=== PATIENT | male | born 1985 | race Hispanic/Latino ===

== ENCOUNTER → 2017-02-28 | Outpatient (REF) | payer OTHER ==
[2017-02-28 16:34] LABS: #IMMOTILE SPERM COUNTED 21.5; #MOTILE SPERM COUNTED 9; % MOTILITY 29 (> 25%); TOTAL # SPERM COUNTED 30.5 M/ml
== END ==
LOC: M LAB REF 15:54
PROVIDERS: ATTEND Obstetrics & Gynecology
DX: N46.9 Male infertility, unspecified (principal)

== ENCOUNTER → 2017-05-25 | Outpatient (REF) | payer OTHER ==
[2017-05-25 10:15] LABS: % NORMAL FORMS 5 % (>=4); IMMOTILITY 58 %; NON PROGRESSIVE MOTILITY (c) 15 %; PROGRESSIVE MOTILITY (a) 27 % (>=32); SPERM# 60.3 M/Ejac (33-46); TOTAL MOTILITY 42 % (>=40); TOTAL PROGRESSIVE SPERM 16.2 M/Ejac.
== END ==
LOC: M LAB REF 09:30
PROVIDERS: ATTEND Obstetrics & Gynecology
DX: N46.9 Male infertility, unspecified (principal)

== ENCOUNTER → 2017-06-06 | Outpatient (REF) | payer OTHER ==
[2017-06-06 09:24] LABS: % NORMAL FORMS 9 % (>=4); IMMOTILITY 48 %; NON PROGRESSIVE MOTILITY (c) 14 %; PROGRESSIVE MOTILITY (a) 38 % (>=32); SPERM# 78.3 M/Ejac (33-46); TOTAL FUNCTIONAL 6.3 M/Ejac.; TOTAL MOTILITY 52 % (>=40); TOTAL PROGRESSIVE SPERM 30.1 M/Ejac.
== END ==
LOC: M LAB REF 09:13
PROVIDERS: ATTEND Obstetrics & Gynecology
DX: N46.8 Other male infertility (principal)

== ENCOUNTER → 2017-06-14 | Outpatient (REF) | payer OTHER ==
[2017-06-14 10:38] LABS: SPERM ABNORMAL FORMS OTHER (SPECIFIY)
[2017-06-14 10:39] LABS: % NORMAL FORMS 14 % (>=4); IMMOTILITY 30 %; NON PROGRESSIVE MOTILITY (c) 13 %; PROGRESSIVE MOTILITY (a) 57 % (>=32); SPERM# 46.1 M/Ejac (33-46); TOTAL FUNCTIONAL 7.9 M/Ejac.; TOTAL MOTILITY 70 % (>=40); TOTAL PROGRESSIVE SPERM 26.4 M/Ejac.
== END ==
LOC: M LAB REF 10:28
PROVIDERS: ATTEND Obstetrics & Gynecology
DX: N46.8 Other male infertility (principal)

== ENCOUNTER 2017-10-05 11:18 | Inpatient (IN) | payer OTHER ==
[~2017-10-05] VITALS: Ht 170.2 cm; Wt 73.0 kg
[2017-10-05 12:36] LABS: MEAN CORPUSCULAR HEMOGLOBIN 29.8 pg (27.0-33.0); MEAN CORPUSCULAR HGB CONC 34.2 g/dl (32.0-36.5); PLATELET COUNT, AUTOMATED 234 10^3/uL (150-450); RED CELL DISTRIBUTION WIDTH 13.2 % (11.5-14.5); WHITE BLOOD COUNT 7.5 10^3/uL (4.0-10.0)
[2017-10-05 13:03] LABS: METHADONE URINE NEGATIVE (NEGATIVE)
[2017-10-05 13:18] LABS: ALBUMIN/GLOBULIN RATIO 1.08 (1.00-1.93); ALKALINE PHOSPHATASE 57 U/L (45-117); ALT/SGPT 34 U/L (12-78); ANION GAP 7 MEQ/L (8-16); AST/SGOT 11 U/L (7-37); BILIRUBIN,DIRECT < 0.1 MG/DL (0.0-0.2); BILIRUBIN,TOTAL 0.4 MG/DL (0.2-1.0); BLOOD UREA NITROGEN 11 MG/DL (7-18); CALCIUM LEVEL 9.7 MG/DL (8.5-10.1); CARBON DIOXIDE LEVEL 29 MEQ/L (21-32); CHLORIDE LEVEL 104 MEQ/L (98-107); CREATININE FOR GFR 1.05 MG/DL (0.70-1.30); GLOMERULAR FILTRATION RATE > 60.0 (>60); GLUCOSE, FASTING 69 MG/DL (70-105); POTASSIUM SERUM 4.1 MEQ/L (3.5-5.1); SODIUM LEVEL 140 MEQ/L (136-145); TOTAL PROTEIN 7.7 GM/DL (6.4-8.2)
[2017-10-05] MEDS ORDERED: REFR0.5D8 OP (13:48)
[2017-10-05] MEDS ORDERED: FLUO1OPD OS (13:48)
[2017-10-05] MEDS ORDERED: MOM 30ML SUSPENSION UDC PO PRN (16:30)
[2017-10-05] MEDS ORDERED: ACETAMINOPHEN TAB 650MG DOSE (2X325MG) PO PRN (16:30)
[2017-10-05] MEDS ORDERED: MAALOX 30 ML SUSP *UDC PO PRN (16:30)
[2017-10-05] MEDS ORDERED: traZODone 50 MG TAB PO PRN (16:30)
[2017-10-05 18:01] VITALS: BP 113/78
[2017-10-05] MEDS ORDERED: FLUO25OPD OS (20:05)
[2017-10-05] MEDS: FLUOROMETHOLONE 0.25% OS SCH (21:00)
[2017-10-06 06:27] VITALS: BP 103/58
[2017-10-06] MEDS: FLUOROMETHOLONE 0.25% OS SCH ×3 (08:47→22:01)
--- NOTE | 2017-10-06 09:13 | HPEPDOC ---
[facility] Medical History & Physical Date of Admission Oct 05, 2017 History and Physical PCP: [facility] ATTENDING: Dr. Cyrus Michael HPI: 32yoM admitted to [facility] for unspecified depressive disorder, being medically examined today. Patient states he has right shoulder pain, right knee pain, and left wrist pain. Right knee pain has been chronic. He does not recall any injuries. He cannot provide any further details at this time. He does not recall when the pain started. He states it feels achy. He denies weakness, numbness, or tingling in upper or lower extremities. He does not complain of neck or low back pain. Denies any fevers, chills, weakness, fatigue, BEARD, CP, SOB, cough, palpitations, abdominal pain, N/V/D or changes in bowel or bladder habits. PMHx: GERD Dry eyes Chronic right knee pain PSHX: Cleft palate surgery Eye surgery SOCHX: Resides in: [facility], from [place] Marital Status: Kids: 1 Employment: Active duty Tobacco use: 4-5 per day ETOH: States he does not know. It "varies". Patient states between 1drink, to 3 drinks to 20 drinks per day. Illicit Drugs: Denies IV Drug Use: Denies Tattoos done unprofessionally: Denies FAMHX: Mother: Patient states unknown Father: Patient states unknown Siblings: None Children: Alive, well Unexpected deaths due to medical reasons: None. ROS: As noted in HPI, otherwise 11pt ROS of systems reviewed and unremarkable. PE: GEN: 32 yoM, appears stated age. Well-nourished, well developed. No acute distress. Alert and oriented x 3. Guarded, reluctant to provide information, does not make eye contact. HEENT: Normocephalic, atraumatic. Pupils are equal, round, and reactive to light. Extraocular movements are intact. No nystagmus appreciated. Sclera are nonicteric. Conjunctiva without injection. Nose midline. Nasal turbinates without bogginess. EACs both patent BL. TMs both visualized and cruz with good cone of light, no bulging or erythema. No facial asymmetry. Moist mucous membranes. Dentition fair. Pharynx pink and moist, no cobblestoning. Neck supple , trachea midline. No lymphadenopathy or thyromegaly appreciated. CHEST: Regular rate and rhythm, +S1, +S2 LUNGS: Clear to auscultation bilaterally. No wheezes, rales, or rhonchi. Breathing appears symmetric and easy. Patient is speaking in full sentences. No accessory muscle use. ABD: Round, soft, non-tender, non-distended. +Bowel sounds throughout. No rebound or guarding. No costovertebral angle tenderness. EXT: Pulses 2+ bilaterally dorsalis pedis and radial. No lower extremity edema appreciated. SKIN: [place], dry, warm. Capillary refill <2sec. No rashes. NEURO: Alert and oriented x 3. Cranial nerves III-XII are intact. No focal deficits appreciated. EKG: pending CHARANJIT pending Lyme screen pending A&P: 32yoM admitted to [facility] for unspecified depressive disorder 1. Psych. Plan per Psychiatry. Obtain baseline EKG to assure the safety of psychiatric medications as they can prolong the QT interval. 2. Nicotine dependence. Patch available. 3. Abnormal TSH. Recheck TFTs in a.m. 4. Follow up with PCP on discharge. 5. GERD. Prilosec 20 mg by mouth daily. Patient states he takes PPI at home. 6. Chronic right knee pain, left wrist pain, right shoulder pain. He states he has had imaging of the right knee. Right knee pain has been chronic and unchanged. Left wrist and right shoulder pain is of new or recent onset, will check x-ray. Rheumatoid factor is noted to be negative. CHARANJIT pending. Lyme pending. 7. Dry eyes. Continue eyedrops per outpatient regimen. 8. Staff member Leo present throughout exam. Vital Signs Vital Signs Date Time Temp Pulse Resp B/P (MAP) Pulse Ox O2 Delivery O2 Flow Rate FiO2 10/06/17 06:27 97.8 55 18 103/58 (73) 10/05/17 18:01 99 Room Air Laboratory Data Labs 24H Laboratory Tests 2 10/05/17 12:21: 10/05/17 12:23: Nucleated Red Blood Cells % (auto) 0.0, Erythrocyte Sedimentation Rate 8, Anion Gap 7L, Glomerular Filtration Rate > 60.0, Calcium Level 9.7, Aspartate Amino Transf (AST/SGOT) 11, Alanine Aminotransferase (ALT/SGPT) 34, Alkaline Phosphatase 57, Total Bilirubin 0.4, Direct Bilirubin < 0.1, C-Reactive Protein , Quantitative < 0.30, Total Protein 7.7, Albumin 4.0, Albumin/Globulin Ratio 1.08, Thyroid Stimulating Hormone (TSH) 6.010H, Salicylates Level < 1.7L, Urine Amphetamines Screen NEGATIVE, Urine Benzodiazepines Screen NEGATIVE, Urine Opiates Screen NEGATIVE, Urine Methadone Screen NEGATIVE, Acetaminophen Level < 2.0L, Urine Barbiturates Screen NEGATIVE, Urine Phencyclidine Screen NEGATIVE, Urine Cocaine Metabolite Screen NEGATIVE, Urine Cannabinoids Screen NEGATIVE, Ethyl Alcohol Level < 0.003, Rheumatoid Factor < 10.0 CBC/BMP Laboratory Tests 10/05/17 12:23 Red Blood Count 5.07, Mean Corpuscular Volume 87.0, Mean Corpuscular Hemoglobin 29.8, Mean Corpuscular Hemoglobin Concent 34.2, Red Cell Distribution Width 13.2 Home Medications Scheduled Fluorometholone (Fml Forte) 100 Drop/5 Ml Susp, 1 DROP OS ASDIRECTED Scheduled PRN Carboxymethylcellulose Sodium (Refresh Tears) 0.5 % Almas, 0.5 % OP PRN PRN for DRY EYES Allergies Coded Allergies: No Known Allergies (Unverified , 10/05/17) Ariela Rendon Oct 06, 2017 09:13
[2017-10-06] MEDS: OMEPRAZOLE 20 MG CAP PO SCH (09:34)
[2017-10-06] MEDS: POLYVINYL ALCOHOL OPHTH SOLN 15 ML(LIQUITEARS) OU PRN (13:52)
[2017-10-06 14:16] LABS: Lyme Disease IgG/IgM Antibodie <0.91 ISR (0.00-0.90); Lyme Disease IgM Ab Quantitati <0.80 index (0.00-0.79)
--- NOTE | 2017-10-06 15:07 | REP ---
LEFT WRIST COMPLETE: 10/06/2017. Clinical history: Pain. Findings: Four views are provided. Distal radius and ulna were unremarkable for fracture or focal bone lesion. There is a few millimeters in an ulna minus variant. 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 There is no lunate subluxation or dislocation. No visible carpal fracture. Metacarpals intact. Impression: 1. Lunatotriquetral coalition. No subluxation, dislocation, fracture or other acute finding noted. This is a normal variation. It may rarely contribute to ulnar sided wrist pain. 2. Ulna minus variant. Signed by Krzysztof Wong MD 10/06/2017 05:47 P
--- NOTE | 2017-10-06 15:09 | REP ---
RIGHT SHOULDER, COMPLETE: 10/06/2017. Clinical history: Pain. Findings: No prior study. Three views show the AC joint and glenohumeral joint intact. There is no subluxation or dislocation. No visible or displaced fracture. No abnormal soft-tissue calcification. Impression: 1. Negative right shoulder series. Signed by Krzysztof Wong MD 10/06/2017 05:47 P
[2017-10-06 18:00] VITALS: BP 115/70
--- NOTE | 2017-10-06 18:32 | ECGEPIP ---
Stationary ECG Study [facility] Test Date: 2017-10-06 Pat Name: MARY HCAVEZ Department: Room: [place] [address] Gender: M Help Desk Associate: XIAO : 1985 Requested By: Ariela Rendon Order Number: [id number] Reading MD: Ivonne Gar Measurements Intervals [place] Rate: 52 P: 29 AL: 138 QRS: 51 QRSD: 94 T: 23 QT: 422 QTc: 393 Interpretive Statements SINUS BRADYCARDIA NO PRIOR Electronically Signed On 10-06-2017 18:32:05 EST by Ivonne Gar
[2017-10-07] MEDS: FLUOROMETHOLONE 0.25% OS SCH ×3 (06:03→17:07)
[2017-10-07 06:33] VITALS: BP 99/61
[2017-10-07] MEDS: OMEPRAZOLE 20 MG CAP PO SCH (07:30)
[2017-10-07] MEDS: SERTRALINE HCL 50 MG TAB PO SCH (09:00)
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
[2017-10-07] MEDS ORDERED: traZODone 50 MG TAB PO PRN (12:45)
[2017-10-07] MEDS ORDERED: LORazepam 1 MG TAB PO PRN (12:45)
[2017-10-07 18:00] VITALS: BP 101/56
[2017-10-07] MEDS: POLYVINYL ALCOHOL OPHTH SOLN 15 ML(LIQUITEARS) OU PRN (22:44)
--- NOTE | 2017-10-07 22:54 | MHIPN ---
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 SUBJECTIVE: "I need to be discharged." OBJECTIVE: The patient is somewhat minimizing the events that led to his admission. Feels that this has been taken out of proportion. The patient is on no psychotropic medication at this time. There is no evidence of psychotic symptoms. No auditory or visual hallucinations or delusions. The patient is frustrated and demanding to be discharged. MENTAL STATUS EXAMINATION: The patient is dressed in [facility]. The patient is partially cooperative but frustrated for his involuntary hospitalization. Has poor eye contact. Speech is poor. Mood is anxious and irritable. Affect is blunted. No evidence of delusions or hallucinations. Memory, attention and concentration are fair. The patient is denying suicidal or homicidal ideation, but then he is not reliable. Insight and judgment are poor. ASSESSMENT: Suicidal ideation. PLAN: 1. Continue close observation. 2. No psychotropic medications have been prescribed at this stage since the patient is denying all the symptoms, is focused on discharge, and is saying that this admission is because the analysis was taken out of proportion.
[2017-10-08 06:00] VITALS: BP 109/53
[2017-10-08] MEDS: FLUOROMETHOLONE 0.25% OS SCH ×3 (06:51→18:13)
[2017-10-08] MEDS: OMEPRAZOLE 20 MG CAP PO SCH (07:48)
[2017-10-08] MEDS: SERTRALINE HCL 50 MG TAB PO SCH (08:19)
[2017-10-08] MEDS: POLYVINYL ALCOHOL OPHTH SOLN 15 ML(LIQUITEARS) OU PRN ×2 (13:50→22:01)
[2017-10-08 18:00] VITALS: BP 105/58
--- NOTE | 2017-10-08 20:43 | IPN ---
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 SUBJECTIVE: "I need to go home." OBJECTIVE: No major changes from yesterday. The patient continues to minimize the events that led to the admission and reports readiness for discharge. The patient is denying any symptoms of depression or suicidal ideation. The patient does not have psychotic symptoms. No auditory or visual hallucinations or delusions. MENTAL STATUS EXAMINATION: The patient dressed in [facility]. The patient is cooperative, frustrated because of his involuntarily hospitalization. Has poor eye contact. Speech is poor. Mood is anxious, at times irritable. Affect is blunted. No evidence of delusions or hallucinations. Memory, attention and concentration are fair. The patient is denying suicidal or homicidal ideations, but again, he is focused on discharge issues only. Insight and judgment are fair. ASSESSMENT: Suicidal ideation. PLAN: 1. Continue close observation. 2. No psychotropic medication as been prescribed at this moment since the patient is denying any symptoms of depression and suicidal ideation. The patient is talking about this admission being because everything has been taken out of proportion.
[2017-10-09 06:28] VITALS: BP 115/59
[2017-10-09] MEDS: FLUOROMETHOLONE 0.25% OS SCH ×3 (06:34→17:33)
[2017-10-09] MEDS: OMEPRAZOLE 20 MG CAP PO SCH (07:39)
[2017-10-09] MEDS: SERTRALINE HCL 50 MG TAB PO SCH (08:21)
[2017-10-09 18:00] VITALS: BP 106/62
[2017-10-10] MEDS: FLUOROMETHOLONE 0.25% OS SCH ×2 (06:10→12:00)
[2017-10-10 06:24] VITALS: BP 114/62
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
[2017-10-10] MEDS: OMEPRAZOLE 20 MG CAP PO SCH (08:34)
[2017-10-10] MEDS: SERTRALINE HCL 50 MG TAB PO SCH (08:35)
[2017-10-10] MEDS ORDERED: OMEP20CA3 PO (12:28)
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
[2017-10-12] MEDS ORDERED: FLUOROMETHOLONE 0.25% OS SCH (09:00)
[2017-10-19] MEDS ORDERED: FLUOROMETHOLONE 0.25% OS SCH (09:00)
== END 2017-10-10 13:50 | disposition home or self-care (01) | DRG 881 ==
LOC: M ED 11:18 → M ED INP 16:30 → M PSY 17:35
PROVIDERS: ADMIT Psychiatry & Neurology Psychiatry; ATTEND Psychiatry & Neurology Psychiatry
DX: F32.9 Major depressive disorder, single episode, unspecified (principal); F60.3 Borderline personality disorder; Z79.899 Other long term (current) drug therapy; F17.200 Nicotine dependence, unspecified, uncomplicated; K21.9 Gastro-esophageal reflux disease without esophagitis

== ENCOUNTER 2017-11-14 13:38 | Emergency (ER) | payer OTHER ==
[~2017-11-14] VITALS: Ht 170.2 cm; Wt 73.6 kg
[2017-11-14 13:38] VITALS: BP 118/71
[~2017-11-14 13:38] MED LIST: FLUO1OPD OS; FLUO25OPD OS; OMEP20CA3 PO; REFR0.5D8 OP
--- NOTE | 2017-11-15 15:05 | REP ---
Left knee series: Four views. History: Pain. Findings: Four views of the left knee are presented. The patient was apparently unable to position himself for the sunrise radiograph. There is a small bone density at the medial femoral condyle, which could be a chip fracture avulsion from the medial collateral ligament insertion. This should be correlated with area of tenderness on exam. Bones, joints and soft tissues are otherwise unremarkable. Impression: Small wafer shaped bone density adjacent to the medial femoral condyle, could be an evulsion chip fracture associated with medial collateral ligament injury. Suggest correlation with area of tenderness on palpation. Signed by José Miguel Nobles MD 11/15/2017 04:57 P
== END 2017-11-14 16:35 | disposition home or self-care (01) ==
LOC: M ED 13:38
DX: M85.862 Other specified disorders of bone density and structure, left lower leg (principal); V48.4XXA Person boarding or alighting a car injured in noncollision transport accident, initial encounter; Y92.89 Other specified places as the place of occurrence of the external cause; Z79.899 Other long term (current) drug therapy; Z87.891 Personal history of nicotine dependence

== ENCOUNTER → 2017-12-12 | Outpatient (CLI) | payer OTHER ==
[~2017-12-12] MED LIST changes: +CONRAY-43 43% 50ML VIAL (Q9960) As Ordered; -FLUO1OPD OS; -FLUO25OPD OS; -OMEP20CA3 PO; +PROHANCE 279.3MG/ML 5ML VIAL (A9576) As Ordered; -REFR0.5D8 OP
== END ==
LOC: M RADPRO 07:13
DX: M25.511 Pain in right shoulder (principal); M75.31 Calcific tendinitis of right shoulder
CPT/HCPCS: 23350

== ENCOUNTER → 2018-08-15 | Outpatient (REF) | payer OTHER, SELFPAY ==
[2018-08-15 11:55] LABS: HEMATOCRIT 45.4 % (42.0-52.0); HEMOGLOBIN 14.9 g/dl (13.5-17.5); MEAN CORPUSCULAR HEMOGLOBIN 28.7 pg (27.0-33.0); MEAN CORPUSCULAR HGB CONC 32.8 g/dl (32.0-36.5); MEAN CORPUSCULAR VOLUME 87.5 fl (80.0-96.0); PLATELET COUNT, AUTOMATED 230 10^3/uL (150-450); RED BLOOD COUNT 5.19 10^6/uL (4.30-6.10); RED CELL DISTRIBUTION WIDTH 13.4 % (11.5-14.5); WHITE BLOOD COUNT 7.4 10^3/uL (4.0-10.0)
[2018-08-15 13:24] LABS: ALBUMIN 4.1 GM/DL (3.2-5.2); ALBUMIN/GLOBULIN RATIO 1.08 (1.00-1.93); ALKALINE PHOSPHATASE 57 U/L (45-117); ALT/SGPT 28 U/L (12-78); ANION GAP 7 MEQ/L (8-16); AST/SGOT 12 U/L (7-37); BILIRUBIN,TOTAL 0.4 MG/DL (0.2-1.0); BLOOD UREA NITROGEN 12 MG/DL (7-18); CALCIUM LEVEL 9.4 MG/DL (8.5-10.1); CARBON DIOXIDE LEVEL 29 MEQ/L (21-32); CHLORIDE LEVEL 105 MEQ/L (98-107); CHOLESTEROL LEVEL 240 MG/DL (<200); CHOLESTEROL RISK RATIO 5.853 (<5); CREATININE FOR GFR 1.02 MG/DL (0.70-1.30); FREE T4 1.36 NG/DL (0.76-1.46); GLOMERULAR FILTRATION RATE > 60.0 (>60); GLUCOSE, FASTING 80 MG/DL (70-100); HDL CHOLESTEROL 41 MG/DL (>40); LDL CHOLESTEROL 159 MG/DL (<100); NON-HDL-C 199 MG/DL; POTASSIUM SERUM 4.3 MEQ/L (3.5-5.1); SODIUM LEVEL 141 MEQ/L (136-145); THYROID STIMULATING HORMONE 0.304 uIU/ML (0.358-3.740); TOTAL PROTEIN 7.9 GM/DL (6.4-8.2); TRIGLYCERIDES LEVEL 201 MG/DL (<150)
== END ==
LOC: M SFHCPLAZ 09:28
DX: E03.9 Hypothyroidism, unspecified (principal); Z13.220 Encounter for screening for lipoid disorders
CPT/HCPCS: 84443